=== PATIENT | female | born 1960 | race African-American/Black ===

== ENCOUNTER 2019-10-19 14:17 | Inpatient (IN) | payer OTHER ==
[2019-10-19] MEDS ORDERED: ACETAMINOPHEN 1000 MG/100 ML VIAL (NON FORMULARY) IVPB ONE (14:28)
[2019-10-19 14:39] VITALS: BMI 28.9
--- NOTE | 2019-10-19 14:39 | PDOC ---
History of Present Illness - General Chief Complaint: SIRS, Suspected/Possible Stated Complaint: UNRESPONSIBE Time Seen by Provider: 10/19/19 14:27 - History of Present Illness Initial Comments: History limited 2/2 patient clinical condition. Ms. Luna is a 58 y/o female with PMH significant for ESRD, HTN, HLD, GERD, COPD , renal osteodystrophy, found to be lethargic at [facility] today. Per , she has been feeling increasingly tired over the past two weeks. Per facility patient was more lethargic compared to her baseline. Low BP noted and pt sent via EMS. Past History - Past Medical History Allergies/Adverse Reactions: Allergies Allergy/AdvReac Type Severity Reaction Status Date / Time nutritional therapy, Allergy Verified 10/19/19 14:41 impaired renal function, soy [From Nepro] nutritional tx, impaired Allergy Verified 10/19/19 14:41 renal fxn,lactose-reduced [From Nepro] Review of Systems - Review of Systems Able to Perform ROS?: No *Physical Exam - Physical Exam Exam limited 2/2 patient condition GENERAL: Arousable to pain, no acute distress. HEAD: No signs of trauma, normocephalic, atraumatic _ EYES: PERRLA ENT: nares patent, oropharynx clear without exudates. No uvular deviation. NECK: supple, no lymphadenopathy, JVD, or masses_ LUNGS: No distress, clear to auscultation bilaterally _ HEART: Regular rate and rhythm, normal S1 and S2, no murmurs appreciated, peripheral pulses normal and equal bilaterally._ ABDOMEN: Soft, nontender. No guarding, no rebound. No masses_ EXTREMITIES: Normal inspection, no edema. NEUROLOGICAL: Unable to assess SKIN: Warm, Dry ED Treatment Course - LABORATORY CBC & Chemistry Diagram: 10/19/19 15:09 10/19/19 15:09 Medical Decision Making - Medical Decision Making 58F on HD presenting with lethargy, and unresponsiveness that started 2 days ago. Will start sepsis work up. Pt is DNR/DNI. 10/19/19 15:00 EKG shows sinus tachycardia, 113 bpm, no ST elevation, QTc 504. 10/19/19 16:09 D/w family extensively. and family state they would like antibiotics, but would like to hold off on blood transfusion at this time. Labs reviewed. CXR shows no acute intra thoracic pathology. Will start cefepime and treat low potasssium. Laboratory Last Values WBC 32.7 K/mm3 (4.0-10.0) H* 10/19/19 15:09 RBC 2.39 M/mm3 (3.60-5.2) L 10/19/19 15:09 Hgb 6.1 GM/dL (10.7-15.3) L* 10/19/19 15:09 Hct 20.9 % (32.4-45.2) L 10/19/19 15:09 MCV 87.2 fl (80-96) 10/19/19 15:09 MCH 25.4 pg (25.7-33.7) L 10/19/19 15:09 MCHC 29.2 g/dl (32.0-36.0) L 10/19/19 15:09 RDW 19.9 % (11.6-15.6) H 10/19/19 15:09 Plt Count 251 K/MM3 (134-434) 10/19/19 15:09 MPV 9.3 fl (7.5-11.1) 10/19/19 15:09 Absolute Neuts (auto) 31.0 K/mm3 (1.5-8.0) H 10/19/19 15:09 Neutrophils % 94.8 % (42.8-82.8) H 10/19/19 15:09 Neutrophils % (Manual) 90.0 % (42.8-82.8) H 10/19/19 15:09 Band Neutrophils % 6.0 % 10/19/19 15:09 Lymphocytes % 3.5 % (8-40) L 10/19/19 15:09 Lymphocytes % (Manual) 4.0 % (8-40) L 10/19/19 15:09 Monocytes % 1.7 % (3.8-10.2) L 10/19/19 15:09 Monocytes % (Manual) 0 % (3.8-10.2) L 10/19/19 15:09 Eosinophils % 0.0 % (0-4.5) 10/19/19 15:09 Eosinophils % (Manual) 0.0 % (0-4.5) 10/19/19 15:09 Basophils % 0.0 % (0-2.0) 10/19/19 15:09 Basophils % (Manual) 0.0 % (0-2.0) 10/19/19 15:09 Nucleated RBC % 0 % (0-0) 10/19/19 15:09 Hypochromia 1+ 10/19/19 15:09 Platelet Estimate Adequate 10/19/19 15:09 Anisocytosis 1+ 10/19/19 15:09 PTT (Actin FS) 24.9 SECONDS (25.2-36.5) L 10/19/19 15:09 VBG pH 7.03 (7.31-7.41) L* 10/19/19 15:36 POC VBG pCO2 57.1 mmHg (38-52) H 10/19/19 15:36 POC VBG pO2 117 mmHg (28-48) H 10/19/19 15:36 VBG HCO3 14.3 mmol/L (23-29) L 10/19/19 15:36 VBG O2 Sat (Toby) 93.9 % (70-80) H 10/19/19 15:36 VBG Base Excess -14.0 meq/l (-2-2) L 10/19/19 15:36 Sodium 142 mmol/L (136-145) 10/19/19 15:09 Potassium 2.9 mmol/L (3.5-5.1) L* 10/19/19 15:09 Chloride 102 mmol/L (98-107) 10/19/19 15:09 Carbon Dioxide 17 mmol/L (21-32) L 10/19/19 15:09 Anion Gap 22 MMOL/L (8-16) H 10/19/19 15:09 BUN 28.9 mg/dL (7-18) H 10/19/19 15:09 Creatinine 3.3 mg/dL (0.55-1.3) H 10/19/19 15:09 Est GFR (CKD-EPI)AfAm 17.10 10/19/19 15:09 Est GFR (CKD-EPI)NonAf 14.75 10/19/19 15:09 POC Glucometer 150 UNITS (80-120) 10/19/19 14:50 Random Glucose 144 mg/dL (74-106) H 10/19/19 15:09 Lactic Acid 12.0 mmol/L (0.4-2.0) H* 10/19/19 15:09 Calcium 8.3 mg/dL (8.5-10.1) L 10/19/19 15:09 Total Bilirubin 0.7 mg/dL (0.2-1) 10/19/19 15:09 AST 681 U/L (15-37) H 10/19/19 15:09 ALT 254 U/L (13-61) H 10/19/19 15:09 Alkaline Phosphatase 125 U/L (45-117) H 10/19/19 15:09 Troponin I 2.29 ng/ml (0.00-0.05) H* 10/19/19 15:09 Total Protein 5.2 g/dl (6.4-8.2) L 10/19/19 15:09 Albumin 1.4 g/dl (3.4-5.0) L 10/19/19 15:09 Influenza A (Rapid) Negative (Negative) 10/19/19 15:15 Influenza B (Rapid) Positive (Negative) A 10/19/19 15:15 10/19/19 16:42 D/w Dr. Manzanares who accepts the patient for admission. Will plan for med/surg med as pt is DNR/DNI and family is considering comfort care. 10/19/19 17:08 D/w patient's , who requests that we hold off on the CT head scan for now. 10/19/19 18:00 Pt given 2 mg of morphine as family is concerned she is grunting and in pain. 10/19/19 19:36 Pt at 7:14pm. DNR/DNI per family. billet examiner notified #[id number]. [facility] facility notified. Dr. Carmela Manzanares notified who will fill out certificate. Discharge - Discharge Information Problems reviewed: Yes Clinical Impression/Diagnosis: , Severe sepsis Condition: Disposition: - Admission Yes - Follow up/Referral - Patient Discharge Instructions - Post Discharge Activity
--- NOTE | 2019-10-19 15:07 | PDOC ---
Documentation entered by Carie Nieves SCRIBE, acting as scribe for Libertad Noe DO. Libertad Noe DO: This documentation has been prepared by the Lizbeth julio Nirvannie, SCRIBE, under my direction and personally reviewed by me in its entirety. I confirm that the documentation accurately reflects all work, treatment, procedures, and medical decision making performed by me. Attending Attestation - Resident Resident Name: Santosh Gonzalez - ED Attending Attestation I have performed the following: I have examined & evaluated the patient, The case was reviewed & discussed with the resident, I agree w/resident's findings & plan, Exceptions are as noted - HPI HPI: 10/19/19 16:00 The patient is a 58 year old female, with a significant past medical history of ESRD, HTN, HLD, GERD, COPD, renal osteodystrophy, CAD (s/p PCI stenting 06/12), who presents to the emergency department from [facility] with lethargy. As per facility, patient was more lethargic than her baseline. Per facility BP: 88/40 mmHg and 93% on supplemental O2. History is limited secondary to patients clinical condition. Allergies: NKA Past surgical history: Appendectomy, hysterectomy, parathyroidectomy, bilateral knee surgeries. Primary Care Physician: Dr. Manzanares Advanced Directives: DNR/DNI - Physicial Exam PE: 10/19/19 16:12 Constitutional: +Ill appearing. +Hot to touch. +Septic. Head: Normocephalic. Atraumatic Eyes: PERRL. EOMI. Conjunctivae are not pale. ENT: +Mucous membranes dry. Posterior pharynx without exudates or erythema. Uvula midline. Neck: Supple. Full ROM. No lymphadenopathy. Cardiovascular: +Tachycardic. Distal pulses are 2+ and symmetric. Pulmonary/Chest: +Dialysis catheter clean, dry, and intact to the right chest. + Diminished breath sounds bilaterally. Abdominal: Soft and non-distended. There is no tenderness. No rebound, guarding or rigidity. No organomegaly. No palpable masses. Back: No CVA tenderness. Musculoskeletal: No edema. No cyanosis. No clubbing. No calf tenderness. Radial/pedal pulses are intact and 2+ bilaterally Skin: +Right heel wound. Skin is warm and dry. No petechiae. No purpura. Neurological: +Moan and grunts on exam. Psychiatric: +Ill appearing. - Critical Care Time Total Critical Care Time: 90 Critical Care Statement: The care of this patient involved high complexity decision making to prevent further life threatening deterioration of the patient 's condition and/or to evaluate & treat vital organ system(s) failure or risk of failure. - Medical Decision Making 10/19/19 15:04 a/p: 58yo female who is DNR/I sent from [facility] for eval of altered ms, fever, unresponsiveness -pt with glu 150 upon arrival -pt with esrd on HD -pt with HD catheter to R chest wall -pt with tachy mm, febrile upon arrival, pt unable to provide any hx, wounds to R heel -pt septic upon arrival -will send labs, cultures, straight cath for ua -cxr -head ct -will need broad spectrum abx and admission for sepsis 10/19/19 16:08 discussed with the family at the bedside the labs ph 7 wbc 30 hgb 6 per the family, they confirm DNR/I status they are ok with abx at this time, but decline blood transfusion 10/19/19 16:[address] Eleanor Manzanares 10/19/19 16:35 family states ok with ivf, ok with abx, no blood transfusion requests palliative care consult pt with lactate 12 family does not want aggressive interventions residnet discussed the case with dr. manzanares who accepts pt to service 10/19/19 16:39 trop elevated pt with multiorgan failure family requests less intervetion and more comfort care, but requests abx pt with low potassium pt will be admitted Heart Score/ECG Review - ECG Intrepretation Comment:: 10/19/19 15:07 sinus at 113, nl axis, st depression v3-4, abnl ekg
[2019-10-19] MEDS ORDERED: ACETAMINOPHEN INJECTION 100 ML IVPB ONE (15:22)
[2019-10-19 15:36] LABS: HEMATOCRIT 20.9 % (32.4-45.2); LYMPH % 3.5 % (8-40); MCH 25.4 pg (25.7-33.7); MCHC 29.2 g/dl (32.0-36.0); MEAN CELL VOLUME 87.2 fl (80-96); MEAN PLT VOLUME 9.3 fl (7.5-11.1); MONO % 1.7 % (3.8-10.2); NEUT % 94.8 % (42.8-82.8); PLATELET COUNT 251 K/MM3 (134-434); RBC 2.39 M/mm3 (3.60-5.2); RDW 19.9 % (11.6-15.6)
[2019-10-19 15:44] LABS: VENOUS PC02 57.1 mmHg (38-52)
[2019-10-19 15:53] LABS: VENOUS PH 7.03 (7.31-7.41)
[2019-10-19] MEDS ORDERED: SODIUM CHLORIDE 0.9% 1000 ML INFUS.BAG IV ONE ×2 (15:54→16:38)
[2019-10-19] MEDS ORDERED: ALBUTEROL SO4 2.5/IPRATROPIUM 0.5 INH SOL 3 ML VIAL.NEB. NEB ONE ×3 (15:55→17:47)
[2019-10-19 15:57] LABS: HEMOGLOBIN 6.1 GM/dL (10.7-15.3); WHITE BLOOD COUNT 32.7 K/mm3 (4.0-10.0)
[2019-10-19] MEDS ORDERED: CEFEPIME HCL/D5W 1 GM/50 ML BAG IVPB ONE (15:57)
[2019-10-19] MEDS ORDERED: VANCOMYCIN 1 GM in D5W (PRE-DOCKED) 1,000 MG/250 ML IVPB ONE (15:57)
[2019-10-19 16:09] LABS: ALBUMIN 1.4 g/dl (3.4-5.0); BILIRUBIN,TOTAL 0.7 mg/dL (0.2-1); BLOOD UREA NITROGEN 28.9 mg/dL (7-18); CALCIUM 8.3 mg/dL (8.5-10.1); CREATININE 3.3 mg/dL (0.55-1.3); TOT PROT 5.2 g/dl (6.4-8.2)
[2019-10-19 16:22] LABS: POTASSIUM 2.9 mmol/L (3.5-5.1)
[2019-10-19 16:51] LABS: ANISOCYTOSIS 1+
[2019-10-19 16:52] LABS: PLATELET ESTIMATE ADEQUATE
[2019-10-19] MEDS ORDERED: VANCOMYCIN 1 GRAM (PRE-DOCKED) 1,000 MG/250 ML BAG IVPB ONE (17:07)
[2019-10-19] MEDS: KCL 10 MEQ IVPB 10 MEQ/100 ML INFUS.BAG IVPB SCH ×2 (17:10→17:50)
[2019-10-19] MEDS ORDERED: CEFEPIME 1 GM in DEXTROSE 5%-WATER 100 ML IVPB ONE (17:15)
[2019-10-19] MEDS ORDERED: morphine CARPU-JECT 2 MG/1 ML DISP.SYRIN IVPUSH ONE (17:42)
[2019-10-19 17:43] VITALS: TEMP 98.2
[2019-10-19] MEDS ORDERED: MORPHINE SULFATE 2 MG/ML VIAL ONE (17:46)
[2019-10-19 19:14] LABS: ACTIVATED PTT 24.9 SECONDS (25.2-36.5)
[2019-10-19 20:00] VITALS: BP 0/0; PULSE 0
--- NOTE | 2019-10-20 14:03 | EKG ---
Test Reason : Blood Pressure : / mmHG Vent. Rate : 113 BPM Atrial Rate : 113 BPM P-R Int : 114 ms QRS Dur : 090 ms QT Int : 368 ms P-R-T Axes : 068 058 237 degrees QTc Int : 504 ms SINUS TACHYCARDIA ABNORMAL ECG NO PREVIOUS ECGS AVAILABLE Confirmed by Nayely Barlow ([id number]) on 10/20/2019 2:02:59 PM Referred By: Confirmed By:Nayely Barlow
== END 2019-10-19 19:14 | disposition expired | DRG 871 ==
LOC: JER 14:17 → JERBED 15:20
PROVIDERS: ADMIT Internal Medicine; ATTEND Internal Medicine
DX: A41.89 Other specified sepsis (principal); N18.6 End stage renal disease; I12.0 Hypertensive chronic kidney disease with stage 5 chronic kidney disease or end stage renal disease; R65.20 Severe sepsis without septic shock; K21.9 Gastro-esophageal reflux disease without esophagitis; I25.10 Atherosclerotic heart disease of native coronary artery without angina pectoris; N25.0 Renal osteodystrophy; R00.0 Tachycardia, unspecified; Z66 Do not resuscitate; I46.9 Cardiac arrest, cause unspecified; R50.9 Fever, unspecified; J44.9 Chronic obstructive pulmonary disease, unspecified; Z99.2 Dependence on renal dialysis; Z95.5 Presence of coronary angioplasty implant and graft
CPT/HCPCS: 36415; 71045-TC-FY; 80053; 82803; 82962; 83605; 84484; 85025; 85610; 85730; 87040; 87086; 87804; 93005; 93010; 99285-25; J0131; J7030